=== PATIENT | female | born 1945 | race Caucasian/White ===

== ENCOUNTER 2020-01-12 05:11 | Inpatient (IN) | payer MEDICARE, OTHER ==
[~2020-01-12] VITALS: Ht 165.1 cm; Wt 95.7 kg
[2020-01-12 06:00] LABS: Basophils # (auto) 0.1 10 ^3/uL (0-0.2); Basophils % (auto) 1.1 % (0.0-2.0); Eosinophils # (auto) 0.4 10 ^3/uL (0-0.8); Eosinophils % (auto) 4.7 % (0.0-7.0); Hematocrit 42.8 % (36.0-46.0); Hemoglobin 14.9 g/dL (12.2-16.2); Lymphocytes # (auto) 1.9 10 ^3/uL (0.4-5.4); Lymphocytes % (auto) 25.1 % (10.0-50.0); Mean Corpuscular Hemoglobin 31.7 pg (28.0-32.0); Mean Corpuscular Hgb Conc. 34.9 g/dL (32.0-36.0); Monocytes # (auto) 0.6 10 ^3/uL (0-1.3); Monocytes % (auto) 7.4 % (0.0-12.0); Neutrophils # (auto) 4.6 10 ^3/uL (1.6-8.6); Neutrophils % (auto) 61.7 % (37.0-80.0); Platelet Count (auto) 250 10^3/uL (140-450); Red Blood Cells 4.71 10^6/uL (4.0-5.20); Red Cell Distribution Width 13.7 % (11.8-14.3); White Blood Cell 7.5 10^3/uL (4.4-10.8)
[2020-01-12 06:12] LABS: INR 1.07 (0.9-1.15); Partial Thromboplastin Time 32.7 sec (23.64-32.05)
[2020-01-12 06:17] LABS: Urine Bacteria MOD /hpf (None Seen); Urine Blood 1+ /uL (Negative); Urine Hyaline Cast FEW /lpf (0 - 2); Urine Specific Gravity 1.012 (1.001-1.035); Urine WBC 260 /hpf (0 - 5); Urine WBC Clumps PRESENT /hpf (None Seen)
[2020-01-12] MEDS ORDERED: LIDOCAINE 2%HCL (LOCAL ANESTH.) INJ 20ML MDV ONE (06:18)
[2020-01-12] MEDS ORDERED: IODIXANOL 320MG/ML 100ML BTL IV ONE ×2 (06:18→07:31)
[2020-01-12 06:21] LABS: Albumin 3.6 g/dL (3.4-5.0); Calcium 8.5 mg/dL (8.5-10.1); Potassium 3.4 mmol/L (3.5-5.1)
[2020-01-12] MEDS ORDERED: ATROPINE SULF 1 MG/10ml SYR ONE (06:25)
[2020-01-12 06:26] LABS: Bilirubin, Total 0.7 mg/dL (0.2-1.0); Total Protein 7.5 g/dL (6.4-8.2)
[2020-01-12] MEDS ORDERED: ANGIOMAX 250 MG VIAL IV ONE (06:26)
[2020-01-12] MEDS ORDERED: EPINEPHrine HCL 1 MG/10 ML SYRG ONE (06:26)
[2020-01-12] MEDS ORDERED: MIDAZOLAM HCL 1MG/1ML-2 ML VIAL ONE (06:26)
[2020-01-12] MEDS ORDERED: SODIUM CHL 0.9% 50 ML ONE (06:26)
[2020-01-12] MEDS ORDERED: fentaNYL CITRATE 100 MCG/2 ML VL ONE (06:26)
[2020-01-12] MEDS ORDERED: ADENOSINE 6 MG/2 ML INJ IV ONE (07:10)
[2020-01-12] MEDS ORDERED: TICAGRELOR 90 MG TAB ONE (07:35)
[2020-01-12] MEDS ORDERED: ASPirin 325 MG TAB ONE (07:37)
[2020-01-12] MEDS ORDERED: NITROGLYCERIN 0.4 MG SL TAB SL PRN (07:45)
[2020-01-12] MEDS: TICAGRELOR 90 MG TAB PO SCH ×2 (10:00→21:45)
--- NOTE | 2020-01-12 10:31 | NUR ---
Report received from . SHEREEN LAMAS brought to bed 223 following LEFT Cardiac catheterization, on software technician and portable oxygen. Patient transfered to unit bed, connected to technical sales specialist #[id number] and oxygen. Catheterization site assessed for any bleeding, redness or swelling. ANGIOSEAL device in place. Pedal pulses on affected leg assessed for positive tissue perfusion. Patient instructed on need to notify staff immediately if any pain, burning or wetness to site, and any lower back pain. Patient educated on new cardiac medications. All questions and concerns addressed, patient verbalized understanding of all education and instruction. See notes for any further.
[2020-01-12] MEDS ORDERED: PARO-135 (10:36)
[2020-01-12] MEDS: ASPirin-EC 81 mg tab PO SCH (10:41)
[2020-01-12] MEDS: METOPROLOL TARTRATE 25 MG TAB PO SCH ×3 (10:41→21:51)
[2020-01-12 10:45] VITALS: BP 136/92
--- NOTE | 2020-01-12 11:53 | NUR ---
SARAH CROFT RE: CRITICAL TROPONIN. MESSAGE LEFT WITH BACTERIOLOGIST SOIL ANILA. AWAITING CALL BACK
[2020-01-12 12:00] VITALS: BP 141/92
--- NOTE | 2020-01-12 14:08 | NUR ---
MD Paddy CROFT RETURNED PAGE AWARE OF TROPONIN AND PAIN. NEW ORDERS RECEIVED FOR PAIN MEDICATION. NO NEW ORDERS FOR TROPONIN AT THIS TIME
[2020-01-12] MEDS ORDERED: HYDROcodone-ACET 5/325MG TAB PO PRN (14:15)
[2020-01-12 17:00] VITALS: BP 124/73
[2020-01-12 22:00] VITALS: BP 104/60
[2020-01-12] MEDS ORDERED: ATORVASTATIN 20 MG TAB PO SCH (22:00)
[2020-01-13 05:00] VITALS: BP 108/61
[2020-01-13 05:57] LABS: Basophils # (auto) 0.1 10 ^3/uL (0-0.2); Basophils % (auto) 0.8 % (0.0-2.0); Eosinophils # (auto) 0.3 10 ^3/uL (0-0.8); Eosinophils % (auto) 2.6 % (0.0-7.0); Hematocrit 41.3 % (36.0-46.0); Hemoglobin 14.4 g/dL (12.2-16.2); Lymphocytes # (auto) 1.7 10 ^3/uL (0.4-5.4); Lymphocytes % (auto) 17.4 % (10.0-50.0); Mean Corpuscular Hemoglobin 31.9 pg (28.0-32.0); Mean Corpuscular Hgb Conc. 34.9 g/dL (32.0-36.0); Mean Corpuscular Volume 91.4 fL (80.0-100.0); Monocytes # (auto) 0.9 10 ^3/uL (0-1.3); Monocytes % (auto) 8.8 % (0.0-12.0); Neutrophils # (auto) 6.9 10 ^3/uL (1.6-8.6); Neutrophils % (auto) 70.4 % (37.0-80.0); Nucleated Red Blood Cells % 0.6 %; Platelet Count (auto) 237 10^3/uL (140-450); Red Blood Cells 4.52 10^6/uL (4.0-5.20); Red Cell Distribution Width 13.8 % (11.8-14.3); White Blood Cell 9.8 10^3/uL (4.4-10.8)
--- NOTE | 2020-01-13 06:28 | NUR ---
CRITICAL LAB RECEIVED TROPONIN 39.7. THIS IS AN INCREASE FROM THE 9.47 PREVIOUS. Shannon CROFT'S EXTENSION CONTACTED AND MESSAGE LEFT. WILL CONTINUE TO MONITOR AND WILL AWAIT CALL BACK OR ORDERS.
--- NOTE | 2020-01-13 08:15 | NUR ---
Opening Shift Note Assumed care of patient, awake, alert, and oriented. No S/S of distress/SOB or pain. Bed in lowest/locked position, bed rails up x2, call light within reach. Instructed on POC and to call for assist PRN. Will continue to monitor for changes Q1hr and PRN.
[2020-01-13 09:00] VITALS: BP 116/52
[2020-01-13] MEDS: ASPirin-EC 81 mg tab PO SCH (09:41)
[2020-01-13] MEDS: TICAGRELOR 90 MG TAB PO SCH (09:41)
[2020-01-13] MEDS ORDERED: METOPROLOL TARTRATE 25 MG TAB PO SCH (10:00)
[2020-01-13 13:00] VITALS: BP 101/73
[2020-01-13] MEDS ORDERED: CLOPIDOGREL 300 MG TAB PO ONE (14:15)
--- NOTE | 2020-01-13 16:17 | NUR ---
Discharge instructions given as ordered. Encourage to follow up with PMD as instructed. All questions and concerns addressed. Patient verbalized understanding. IV removed with catheter intact, pressure dressing applied. Telemetry unit returned to ICU. Patient taken to vehicle via wheelchair with all personal belongings, accompanied by staff. No distress noted at time of departure.
== END 2020-01-13 16:15 | disposition home or self-care (01) | DRG 247 ==
LOC: EDBD 05:11 → ER 05:11 → OBSVTOIN 05:12 → TELE 05:12 → TELE-CENTR 09:14
PROVIDERS: ADMIT Specialist; ATTEND Specialist
PROC: 027034Z Dilation of Coronary Artery, One Artery with Drug-eluting Intraluminal Device, Percutaneous Approach (ICD-10-PCS; principal; 2020-01-12)
PROC: 02C03ZZ Extirpation of Matter from Coronary Artery, One Artery, Percutaneous Approach (ICD-10-PCS; 2020-01-12)
PROC: B211YZZ Fluoroscopy of Multiple Coronary Arteries using Other Contrast (ICD-10-PCS; 2020-01-12)
PROC: B241ZZ3 Ultrasonography of Multiple Coronary Arteries, Intravascular (ICD-10-PCS; 2020-01-12)
PROC: 3E073PZ Introduction of Platelet Inhibitor into Coronary Artery, Percutaneous Approach (ICD-10-PCS; 2020-01-12)
PROC: B41CYZZ Fluoroscopy of Pelvic Arteries using Other Contrast (ICD-10-PCS; 2020-01-12)
DX: I21.19 ST elevation (STEMI) myocardial infarction involving other coronary artery of inferior wall (principal); I10 Essential (primary) hypertension; F41.9 Anxiety disorder, unspecified; Z79.02 Long term (current) use of antithrombotics/antiplatelets; Z85.3 Personal history of malignant neoplasm of breast; Z79.899 Other long term (current) drug therapy; Z88.6 Allergy status to analgesic agent
CPT/HCPCS: 36415; 71045; 80053; 81001; 82565; 83880; 84484; 85025; 85610; 85730; 92928; 92973; 93005; 93454; 99152; 99153; C1874; G0378; J0153; J2250; Q9967